=== PATIENT | male | born 1995 | race Two or more races ===

== ENCOUNTER 2021-01-30 08:53 | Emergency (ER) | payer MEDICAID ==
[~2021-01-30] VITALS: Ht 172.7 cm; Wt 61.0 kg
[2021-01-30 09:13] VITALS: BP 103/62
== END 2021-01-30 14:08 | disposition home or self-care (01) ==
LOC: ER 08:53
DX: B34.9 Viral infection, unspecified (principal); Z20.822 Contact with and (suspected) exposure to COVID-19
CPT/HCPCS: 99281

== ENCOUNTER 2021-04-30 00:06 | Emergency (ER) | payer MEDICAID ==
[~2021-04-30] VITALS: Ht 154.9 cm; Wt 56.0 kg
[2021-04-30] MEDS ORDERED: NALOXONE HCL 0.4 MG/ML 1ML VIAL IV PRN (00:45)
[2021-04-30 01:35] VITALS: BP 116/76
[2021-04-30 01:54] LABS: BASOPHILS % 0.7 % (0.0-2.0); EOSINOPHILS % 2.2 % (0.0-5.0); HEMOGLOBIN. 14.2 g/dL (14.0-18.0); LYMPHOCYTES % 49.8 % (20.0-50.0); MEAN CORPUSCULAR HEMOGLOBIN 31.7 pg (28.0-32.0); MEAN CORPUSCULAR VOLUME 93.4 fL (80.0-94.0); MEAN PLATELET VOLUME 7.9 fl (7.4-10.4); MONOCYTES % 3.9 % (2.0-8.0); NEUTROPHILS % 43.4 % (40.0-76.0); PLATELET 302 x1000/uL (130-400); RED BLOOD CELL COUNT 4.49 mill/uL (4.7-6.1); RED CELL DISTRIBUTION WIDTH 12.7 % (11.6-14.6)
[2021-04-30 02:02] LABS: CHLORIDE 107 mEq/L (98-107)
[2021-04-30 04:27] LABS: ETHANOL BLOOD 333 mg/dL
== END 2021-04-30 05:22 | disposition home or self-care (01) ==
LOC: ER 00:06
DX: F10.129 Alcohol abuse with intoxication, unspecified (principal); F14.10 Cocaine abuse, uncomplicated; Y90.8 Blood alcohol level of 240 mg/100 ml or more; Z78.1 Physical restraint status
CPT/HCPCS: 36415; 80053; 80307; 80320; 80329; 82140; 85025; 99283; G0480